=== PATIENT | female | born 1990 | race Caucasian/White ===

== ENCOUNTER 2016-08-26 11:24 | Emergency (ER) | payer OTHER ==
[2016-08-26 13:33] LABS: HEMOGLOBIN 15.8 gm/dl (12.3-15.3); RED BLOOD COUNT 5.3 M/UL (4.00-5.10)
[2016-08-26 13:50] LABS: BUN/CREATININE RATIO 8 (0-10)
== END 2016-08-26 17:00 | disposition home or self-care (01) ==
LOC: ER1 11:24
PROVIDERS: Physician Assistant
DX: O20.0 Threatened abortion (principal); O23.41 Unspecified infection of urinary tract in pregnancy, first trimester; Z3A.01 Less than 8 weeks gestation of pregnancy
CPT/HCPCS: 36415; 76817; 80053; 81001; 84702; 85025; 87086; 96360; 96361; 99284